=== PATIENT | male | born 1935 | race Caucasian/White ===

== ENCOUNTER 2016-04-24 16:53 | Day surgery (SDC) | payer MEDICARE ==
[2016-04-24] VITALS (9 sets, daily range): BP systolic 127–192; BP diastolic 54–80; PULSE 56–75; RESP 14–23; O2SAT 91–100
[~2016-04-24] VITALS: Ht 175.3 cm; Wt 100.0 kg
[~2016-04-24 16:53] MED LIST: ASPI81TA2 PO; GEMF600T3 PO; LOP600 PO; LORA0.5T PO; PRA20 PO; SILD100T PO; TEN25 PO; ZES20T PO
[2016-04-24] MEDS ORDERED: Succinylcholine Chloride 20 mg/mL 5 mL Inj ONE (16:54)
[2016-04-24] MEDS ORDERED: Ondansetron 2 mg/mL 2 mL Inj ONE (16:54)
[2016-04-24] MEDS ORDERED: Propofol 10,000 mCg/mL 20 mL Inj ONE (16:54)
[2016-04-24] MEDS ORDERED: Lidocaine PF 1% 30 mL Inj ONE (16:54)
--- NOTE | 2016-04-24 17:33 | ED.REPORT ---
HPI-General Illness Date of Service Apr 24, 2016 ED Provider: Dr. Ba Pt is a 80 year old male who presents to the ED with complaints of an esophageal foreign body. He reports that he was eating fried chicken when a small piece became lodged in his throat. Pt reports that this has never occurred in the past, and he denies having any difficulty breathing or pain. He has no other complaints. Nursing Notes Stated Complaint: CHOKING, SOMETHING IN THROAT Chief Complaint: ENT & Mouth Nursing Notes Reviewed: Yes Allergies: Coded Allergies: niacin (Verified Allergy, Unknown, 04/24/16) Scheduled Atenolol-Expunged Drug, Do Not Renew! (Atenolol-Expunged Drug, Do Not Renew!) 25 Mg Tablet 50 MG PO BID Gemfibrozil (Gemfibrozil) 600 Mg Tablet 600 MG PO BID Gemfibrozil-Expunged Drug, Do Not Renew! (Lopid-Expunged Drug, Do Not Renew!) 600 Mg Tablet 600 MG PO BID Lisinopril-Expunged Drug, Do Not Renew! (Lisinopril-Expunged Drug, Do Not Renew! ) 20 Mg Tablet 40 MG PO DAILY Pravastatin-Expunged Drug, Do Not Renew! (Pravachol-Expunged Drug, Do Not Renew! ) 20 Mg Tab 40 MG PO BID Scheduled PRN Lorazepam (Lorazepam) 0.5 Mg Tablet 0.5 MG PO TID PRN PRN For Anxiety Sildenafil Citrate (Viagra) 100 Mg Tablet 100 MG PO UD PRN PRN erectile support Miscellaneous Medications Aspirin-Expunged Drug, Do Not Renew! (Aspirin-Expunged Drug, Do Not Renew!) 81 Mg Tab 81 MG PO General Time Seen by MD: 17:32 Chief Complaint Other (Foreign Body in Throat) Hx Obtained From: Patient Arrived By: Walk-in Sudden in Onset?: Yes Onset Occurred: 1 - 4 hours ago Symptom Duration: Since onset Severity: Current: No pain currently Severity: Maximum: No pain Similar Sx Previous: Yes Past Medical History Past Medical History None Reported Smoking History Light Tobacco Smoker Ambulatory Status Independent Review of Systems Full Review of Systems Constitutional: Denies: Chills, Fever, Malaise, Weakness - generalized Ears / Nose / Throat: Reports: Throat pain Respiratory: Denies: Non-productive cough, Shortness of breath, Wheezing Cardiovascular: Denies: Chest pain, Syncope GI: Denies: Abdominal pain, Nausea, Vomiting Musculoskeletal: Denies: Back pain, Extremity pain, Neck pain Skin: Denies Diaphoresis Neurologic: Denies: Change LOC, Dizziness, Headache, Syncope, Weakness Complete sys rev & neg: except as marked. Physical Exam Vital Signs Vital Signs Date Time Temp Pulse Resp B/P Pulse Ox O2 Delivery O2 Flow Rate FiO2 04/24/16 23:20 68 16 192/79 94 Room Air 04/24/16 23:05 69 16 164/80 95 Room Air 04/24/16 23:00 69 14 162/64 97 Room Air 04/24/16 22:55 64 23 156/60 97 Room Air 04/24/16 22:53 64 23 160/69 100 Simple Mask 8 04/24/16 22:48 Simple Mask 04/24/16 22:46 36.3 75 20 159/54 98 Simple Mask 8 04/24/16 21:30 56 16 127/77 97 Room Air 04/24/16 20:13 36.1 61 16 170/75 91 Room Air 04/24/16 17:01 36.4 65 20 172/75 94 Room Air Initial VS: Reviewed General/Constitutional: Well-developed, Well-nourished Head / Eyes: Atraumatic, Normocephalic, PERRL Neck: Supple, Non-tender, Full range of motion Respiratory: Breath sounds normal, Clear to auscultation, No respiratory distress Cardiovascular: Regular rate & rhythm, Heart sounds normal, Intact distal pulses Abdomen / GI: Soft, Non-tender, No guarding, No rebound, No distention Skin: Warm, Dry, No cyanosis Neurologic: Alert, Oriented, Nonfocal Psychiatric: Mood/affect normal, Behavior normal, Normal thought content Interpretation & Diagnostics X-Ray Chest Interpretation Chest Xray Interpretation: IMPRESSION: No acute cardiopulmonary disease. Dictated by: Angel Hastings M.D. on 04/24/2016 at 19:21 Interpretation / Wet Read by: Interpret - Radiologist Re-Eval/Medical Decision Med Decision/Clinical Course 80-year-old male presenting with chicken stuck in his throat since 3:30 PM today. Patient was given 2 doses of glucagon and several Coca-Cola with no resolution. Dr. Lavelle HILARIO saw patient and admitted for endoscopy. Source of Hx: Old records Time of Eval: 18:24 Re-Evaluation/Progress Note: Pt is rechecked. He reports that the foreign body remains in his esophagus, and he is continuously vomiting. Consultation #1: Referral / Consult Name: Lavelle Donahue MD Call Returned at: 18:46 Decal Decorator: Agrees with eval, Agrees with plan Note: Spoke with GI, suggests giving additional Glucagon Consultation #2: Referral / Consult Name: Mikhail Valderrama MD Call Returned at: 19:33 Decal Decorator: Will see patient, Agrees with eval, Agrees with plan Counseled Regarding: Diagnosis, Lab results, When/why to return to ED Discharge & Departure Primary Impression: Esophageal foreign body Encounter type: initial encounter Qualified Code: T18.108A - Unspecified foreign body in esophagus causing other injury, initial encounter Disposition: Home Discharge Condition All VS Reviewed: Yes Condition: Stable Referrals: Alen Velázquez MD (PCP) Tutuibhernandez Attestation Portions of this note were transcribed by Marva Pelaez. I, Dr. Ba personally performed the history, physical exam and medical decision-making; I reviewed and confirmed the accuracy of the information in the transcribed note. Signed by: Benedict Reyes, 04/24/2016 [id number] copies to: Alen Velázquez MD, Ben M MD Apr 24, 2016 17:33 SILVA PELAEZ Apr 24, 2016 17:47
[2016-04-24] MEDS ORDERED: Glucagon 1 mg/mL Inj IV ONE ×2 (17:50→18:50)
--- NOTE | 2016-04-24 19:23 | DRSVH ---
PROCEDURE: X-RAY CHEST ONE VIEW, PORTABLE ([id number]) INDICATIONS: foreign body aspiration TECHNIQUE: One view of the chest was acquired. COMPARISON: [facility], CT, CHEST W/O CONTRAST, 07/13/2014, 13:48. [facility] l, CR, CHEST 1VW (PORTABLE), 07/14/2012, 9:35. FINDINGS: Surgical changes and devices: None. Lungs and pleura: No pleural effusions or pneumothorax. Lungs are clear. Mediastinum: Mediastinal contours appear normal. Heart size is normal. Bones and chest wall: No suspicious bony lesions. Overlying soft tissues appear unremarkable. IMPRESSION: No acute cardiopulmonary disease. Dictated by: Angel Hastings M.D. on 04/24/2016 at 19:21 Approved by: Angel Hastings M.D. on 04/24/2016 at 19:21
[2016-04-24] MEDS: Lactated Ringer's 1,000 ML IV ONE ×2 (21:52→22:30)
[2016-04-24] MEDS ORDERED: Lactated Ringer's 500 ML IV PRN (22:47)
[2016-04-24] MEDS ORDERED: Lactated Ringer's 1,000 ML IV SCH (22:47)
--- NOTE | 2016-04-24 22:48 | PCM.ANEP1 ---
Post Anesthesia Phase 1 PACU Phase 1 Assessment Vital Signs Vital Signs Date Time Temp Pulse Resp B/P Pulse Ox O2 Delivery O2 Flow Rate FiO2 04/24/16 22:46 36.3 75 20 159/54 98 Simple Mask 8 04/24/16 21:30 56 16 127/77 97 Room Air 04/24/16 20:13 36.1 61 16 170/75 91 Room Air 04/24/16 17:01 36.4 65 20 172/75 94 Room Air Anesthetic Administered: GA Level of Alertness: Sleepy, easy to arouse Pain: No Nausea or Vomiting: No Oxygen Delivery: Simple Mask Jensen Chappell MD Apr 24, 2016 22:48
[2016-04-24] MEDS ORDERED: EPHEDrine Sulfate 50 mg/mL Inj IVPUSH PRN (22:50)
[2016-04-24] MEDS ORDERED: Ondansetron 2 mg/mL 2 mL Inj IVPUSH PRN (22:50)
[2016-04-24] MEDS ORDERED: HYDROmorphone 1 mg/mL Inj IVPUSH PRN (22:50)
[2016-04-24] MEDS ORDERED: Phenylephrine 10,000 mCg/mL Inj IVPUSH PRN (22:50)
[2016-04-24] MEDS ORDERED: MetoCLOpramide 5 mg/mL 2 mL Inj IVPUSH PRN (22:50)
[2016-04-24] MEDS ORDERED: fentaNYL-PF 50 mCg/mL 2 mL Inj IVPUSH PRN (22:50)
[2016-04-24] MEDS ORDERED: Dexamethasone 4 mg/mL Inj IVPUSH PRN (22:50)
--- NOTE | 2016-04-24 22:53 | PCM.HPANE ---
Patient Data Date of Service: Apr 24, 2016 Surgeon Admitting Provider: Attending Provider: Primary Care Physician:Alen Velázquez MD Other Provider: Reason for Visit Choking, Something In Throat Ht/WT & BMI Height (Feet): 5 Height (Inches): 9.00 Weight (Kilograms): 100.000 Body Mass Index 32.00 Allergies Coded Allergies: niacin (Verified Allergy, Unknown, 04/24/16) Past Anesthesia History Anesthesia History: Denies:: Abnormal Airway, Anesthesia Reactions, Difficult Intubation, Fam Anesthesia Reaction, Fam Malignant Hypertherm, Malignant Hyperthermia Diabetes History Hx Diabetes?: No MRSA MRSA: No Medications Blood Thinner: Aspirin Hypertension Medication: Yes Home Meds Incl Beta Rosie: Yes Date Beta Rosie Taken: Apr 23, 2016 (21:00) Reported Medications Gemfibrozil 600 Mg Euopsa540 Mg PO BID #60 TABLET 10/31/15 Sildenafil Citrate (Viagra)100 Mg Dawcrr024 Mg PO UD PRN erectile support Ref 0 10/31/15 Lorazepam 0.5 Mg Tablet0.5 Mg PO TID PRN For Anxiety Ref 0 10/31/15 Aspirin-Expunged Drug, Do Not Renew! 81 Mg Tab81 Mg PO 07/14/12 Lisinopril-Expunged Drug, Do Not Renew! 20 Mg Suyrxt58 Mg PO DAILY #60 TAB 07/14/12 Atenolol-Expunged Drug, Do Not Renew! 25 Mg Dgmbcf82 Mg PO BID 07/14/12 Pravastatin-Expunged Drug, Do Not Renew! (Pravachol-Expunged Drug, Do Not Renew! )20 Mg Tab40 Mg PO BID #30 TAB 07/14/12 Gemfibrozil-Expunged Drug, Do Not Renew! 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) Denies:: Abnormal Airway Difficult Intubation Other History/Comment esophageal obstruction Hx of Heart Problems?: Yes Cardiovascular History: Positive for:: Hypertension Denies:: AICD Congestive Heart Failure Pacemaker Other History/Comments htn, diastolic dysfunction Hx of Respiratory Problem?: Yes Respiratory History: Positive for:: Cough (COARSE "SMOKER" COUGH) Denies:: Tuberculosis Hx Neurologic Problems?: No Neurological History: Denies:: CVA Hx of GI Problems?: No Hx of Problems?: No Hx Musculoskeletal Problems?: No Hx of Psycho/Social Problems?: No Psycho Social History: Positive for:: Anxiety ("ONLY WHEN I FLY") Hx Surgeries?: Yes (APPY, CATARACTS, T&A, ) Hx Diabetes: No Hx Alcohol Use: No (QUIT 1981) Smoking Status: Light Tobacco Smoker Stop/Bang S-Snoring: Do You Snore Loudly: Yes T-Tired: feel tired, fatigued: No O-Obsered: Observed not breath: No P-Blood Pressure: treated: Yes B- Body Mass Index > 35 kg/m2: Yes A- Age over 50: Yes N- Neck Large Circumference: Yes [id number] Risk Assessment: High Risk, =/>3 Yes Risk Assessment Category Category 1A: Patient has history of documented sleep apnea, and HAS NOT received any narcotic, sedative or anesthesia administration during this stay. Category 1B: Patient has history of documented sleep apnea, and HAS received any narcotic , sedative or anesthesia administration during this stay Category 2: Patient has SUSPECTED Obstructive Sleep Apnea, and HAS received any narcotic , sedative or anesthesia administration during this stay. Category 3: Patient has SUSPECTED Obstructive Sleep Apnea and HAS NOT received narcotic, sedative or anesthesia administration during this stay. Category 4: Outpatient in Procedural Areas with known sleep apnea or who screen positive for High Risk via the STOP/BANG questionnaire. Exam Exam Vital Signs Vital Signs Date Time Temp Pulse Resp B/P Pulse Ox O2 Delivery O2 Flow Rate FiO2 04/24/16 22:46 36.3 75 20 159/54 98 Simple Mask 8 04/24/16 21:30 56 16 127/77 97 Room Air 04/24/16 20:13 36.1 61 16 170/75 91 Room Air 04/24/16 17:01 36.4 65 20 172/75 94 Room Air General Appearance: Oriented X3 HEENT/AIRWAY: MP 2 Lungs: Clear to Auscultation Heart: Exam Unremarkable Meds/Labs/Diagnostics Admission Meds Current Medications Glucagon (Glucagen Inj) 1 mg ONCE ONCE IV Last administered on 04/24/16 18:21 ; Start 04/24/16 at 17:50; Stop 04/24/16 at 17:51; Status DC Glucagon 1 mg 1 mg ONCE ONCE IV Last administered on 04/24/16 18:50; Start 04/24/16 at 18:50; Stop 04/24/16 at 18:51; Status DC Lactated Ringer's (Lr) 1,000 ml @ ud STK-MED ONCE IV Last administered on 22:30; Start 04/24/16 at 21:08; Stop 04/24/16 at 21:09; Status DC Plan Impression Patient chart reviewed, patient interviewed and anesthestic plan with risks, benefits, and alternatives discussed, and informed consent obtained. ASA Physical Status: ASA2 Mod Systemic Disease Anesthetic Plan: GA Bene/Risks/Altern/Consents: Yes HP Complete Prior to Induction: Yes Jensen Chappell MD Apr 24, 2016 22:53
--- NOTE | 2016-04-24 22:54 | PCM.ANEP2 ---
Post Anesthesia Evaluation ASA/CMS Post Anesthesia VS in Patient's Normal Range?: Yes Resp Stable; Airway Patent?: Yes CV Function & Hydration Stable: Yes Mental Status Recovered?: Yes Pain control Satisfactory?: Yes N/V Control Satisfactory?: Yes Jensen Chappell MD Apr 24, 2016 22:54
--- NOTE | 2016-04-24 23:13 | CONS ---
[address] [address] CONSULTATION REPORT PATIENT: OLMAN HODGES : 1935 MR#: [id number] ADMIT: 04/24/2016 JOB ID: [id number] DATE OF SERVICE: 04/24/2016 REASON FOR CONSULTATION: Food impaction. HISTORY OF PRESENT ILLNESS: A 80-year-old, male with no past medical history who presents for food impaction. The patient at 3 p.m. today was eating [employer] food and ate some chicken and it got lodged in his esophagus. Patient felt that this would not go down and came to the emergency department. The patient states he never had an EGD or colonoscopy in the past. Denies family history of colon cancer, inflammatory bowel disease, or celiac disease. The patient denies rectal bleeding, hematemesis, abdominal pain, change in bowel habits, or unintentional weight loss. PAST MEDICAL HISTORY: As stated above. PAST SURGERIES: None. ALLERGIES: Denies. MEDICATIONS AT HOME: 1. Atenolol. 2. Gemfibrozil. 3. Lopid. 4. Lisinopril. 5. Pravachol. 6. Viagra as needed. 7. Lorazepam as needed. SOCIAL HISTORY: He is a light tobacco smoker. No IV drug use. No alcohol history. FAMILY HISTORY: Negative for colon cancer, inflammatory bowel disease, or celiac disease. REVIEW OF SYSTEMS: The patient denies headache, blurred vision. Positive nausea and vomiting. No chest pain, shortness of breath, abdominal pain, skin rash, joint pain. PHYSICAL EXAMINATION: Vital signs: The patient . Temperature 36.1, pulse 61, respiratory rate 16, blood pressure 170/75, satting 91% on room air. General: In no acute distress. Head: No scars. Eyes: Anicteric. Throat: Supple. Lungs: Clear to auscultation bilaterally. Cardiovascular: Regular rhythm and rate. Abdomen: Soft, nondistended, nontender. Normal bowel sounds. Extremities show no cyanosis, clubbing or edema. ASSESSMENT AND PLAN: This is a 80-year-old, male who presents here with food impaction. RECOMMENDATIONS: 1. N.p.o. 2. Emergent EGD for this patient given the fact that he has food in his esophagus, per the patient, which is a risk of aspiration. This is an emergent procedure.
--- NOTE | 2016-04-25 07:03 | ENDO ---
[address] [address] ENDOSCOPY PROCEDURE PATIENT: OLMAN HODGES : 1935 MR#: [id number] ADMIT: 04/24/2016 JOB ID: [id number] DATE OF PROCEDURE: 04/24/2016. PROCEDURE: Esophagogastroduodenoscopy with biopsy and food impaction removal. PREOPERATIVE DIAGNOSIS(ES): Food impaction. POSTOPERATIVE DIAGNOSIS(ES): 1. Food seen in esophagus 23 cm from incisors, removed by Kaur Net, four prong biopsy and overtube. 2. Mild nonerosive gastritis. 3. Status post bx distal esophagus. ANESTHESIA: Monitored anesthesia care, converted to intubation and general. COMPLICATION: None. BLOOD LOSS: Minimal. DESCRIPTION OF PROCEDURE: After risks and benefits explained to the patient, informed consent was obtained. After anesthesia administered, an upper endoscope was inserted in mouth, intubated into the esophagus. Stomach, second portion of duodenum and mucosa examined. After the procedure, the scope withdrawn and procedure terminated. FINDINGS: Upon inspection of the esophagus, there was a large chunk of chicken and corn seen 23 cm from the incisors. Once this was seen, the scope was then withdrawn and the patient was intubated and converted to general anesthesia. Afterward, a Kaur Net and a four prong biopsy were used to remove some of the debris. An overtube was then placed and the upper endoscope was then inserted and the food was pushed through into the stomach with ease. Upon entering the stomach, there was mild nonerosive gastritis. Retroflexion showed no masses, ulcers or lesions. Duodenal bulb, first and second portion were normal. Biopsies taken from mid and distal esophagus. IMPRESSIONS: 1. Food seen in esophagus 23 cm from the incisors. Converted to general anesthesia and intubated. Food was removed by Kaur Net, four prong biopsy and overtube that pushed the food to the stomach. 2. Mild nonerosive gastritis. RECOMMENDATIONS: 1. Await pathology results. 2. Protonix 40 mg by mouth twice a day. 3. Pureed food diet. MTDD
--- NOTE | 2016-04-27 15:03 | PATH ---
SURGICAL PATHOLOGY Attending Physician:Mikhail Valderrama MD CASE STATUS: Signed Out PATIENT NAME: OLMAN HODGES PID: [id number] : 1935 DATE COLLECTED:04/24/2016 00:00 SPECIMEN: 1: Esophagus, Biopsy 2: Esophagus, Biopsy CLINICAL HISTORY: A: DISTAL ESOPHAGUS BIOPSY B: MID ESOPHAGUS BIOPSY FINAL DIAGNOSIS: 1.DISTAL ESOPHAGUS BIOPSY: SQUAMOUS MUCOSA WITH ACTIVE ESOPHAGITIS AND INCREASED EOSINOPHILS. Negative for fungal organisms by GMS stain. Negative for intestinal metaplasia. Negative for dysplasia and malignancy. 2.MID ESOPHAGUS BIOPSY: SQUAMOUS MUCOSA WITH ACTIVE ESOPHAGITIS AND INCREASED EOSINOPHILS. Negative for fungal organisms by GMS stain. Negative for intestinal metaplasia. Negative for dysplasia and malignancy. ICD10 code K20.9 NOTE: Both sets of squamous mucosa show active inflammation, including eosinophils, up to 26 per high-power field in both sets of biopsies. There is mild basal and capillary hypertrophy. Stains for fungal organisms are negative. The differential diagnosis of these histologic changes includes eosinophilic esophagitis, drug reaction, and food allergy. Correlation with clinical history and endoscopic findings is necessary for a definitive diagnosis. GROSS DESCRIPTION: The specimen is received in two formalin filled containers labeled with the patient's name. 1). The specimen consists of 2 portions of tissue which aggregate to 0.3 x 0.3 x 0.2 CM. The specimen is entirely submitted in cassette 1A. 2). The specimen is sublabeled "mid esophagus" and consists of a 0.4 x 0.3 x 0.2 CM portion of tissue which is entirely submitted in cassette 2A. 04/25/2016 DAC MICRO DESCRIPTION: A.& B. Sections are of squamous mucosa showing an active inflammatory process composed primarily of eosinophils, up to 26 per high-power field. There is mild intracellular edema and loss of cytoplasmic glycogen. A GMS stain is performed on each of the biopsies to rule out the presence of fungal organisms. The GMS stains on the patient biopsies are negative for fungal organisms. Positive control stains appropriately. ICD-9 CODES: CPT CODES: 1: 28923, 03407 2: 89551, 70338 Electronically Signed Out Britni Biggs MD [facility] Pathology [facility] [address] [facility], [place] [address] Technical component performed at [facility], [facility] [address], [place], [address]
== END 2016-04-24 23:59 ==
LOC: SED 16:53 → END 20:00 → SED 21:45 → END 23:59
PROVIDERS: ATTEND Internal Medicine Gastroenterology
DX: T18.128A Food in esophagus causing other injury, initial encounter (principal); X58.XXXA Exposure to other specified factors, initial encounter; Y93.89 Activity, other specified; Y99.8 Other external cause status; Y92.019 Unspecified place in single-family (private) house as the place of occurrence of the external cause; I10 Essential (primary) hypertension; F17.200 Nicotine dependence, unspecified, uncomplicated; Z88.8 Allergy status to other drugs, medicaments and biological substances; K29.70 Gastritis, unspecified, without bleeding
CPT/HCPCS: 43239; 43247; 71010; 88305; 88312; 96374; 99285; J0330; J1610; J2405; J7120